=== PATIENT | male | born 1925 | race Caucasian/White ===

== ENCOUNTER 2016-10-21 10:06 | Emergency (ER) | payer MEDICARE ==
--- NOTE | 2016-10-21 12:09 | ED ---
Extremity Problem HPI - General Chief complaint: Extremity Problem,Nontraumatic Stated complaint: left leg pain Time Seen by Provider: 10/21/16 11:10 Source: patient Mode of arrival: ambulatory Limitations: no limitations - History of Present Illness Initial comments: Patient's 89-year-old male with history of diabetes and hypertension presenting with left calf pain. Patient states pain started Friday while he was getting up from sitting at his desk. Patient states pain and swelling has increased since Friday. Patient without history of DVT/PE. Denies history of travel/trauma/surgery. Denies diagnosis of cancer. Patient also complains of multiple episodes of lightheadedness where he catches himself before falling. Patient states lightheadedness happens in the morning and only last about 30 minutes. He has not fallen or hit his head. Patient does not take any blood thinners. - Related Data Home Medications Medication Instructions Recorded Confirmed Aspirin EC [Ecotrin Low Dose] 81 mg PO QAM 10/21/16 10/21/16 Gabapentin 800 mg PO HS 10/21/16 10/21/16 Glucosamine-Chondr 500-400Mg 1 tab PO QAM 10/21/16 10/21/16 Ibuprofen/Diphenhydramine HCl 2 cap PO HS 10/21/16 10/21/16 [Advil Pm Liqui-Gels] Metoprolol Succinate (ER) [Toprol 50 mg PO HS 10/21/16 10/21/16 Xl] Multivit-Min/FA/Lycopen/Lutein 1 tab PO QAM 10/21/16 10/21/16 [Centrum Silver Men Tablet] Omeprazole [PriLOSEC] 20 mg PO HS 10/21/16 10/21/16 Tamsulosin [Flomax] 0.8 mg PO HS 10/21/16 10/21/16 Vit C/E/Zn/Coppr/Lutein/Zeaxan 1 cap PO BID 10/21/16 10/21/16 [Preservision Areds 2 Softgel] amLODIPine [Norvasc] 10 mg PO HS 10/21/16 10/21/16 traMADol HCl [Ultram] 50 mg PO Q6H PRN 10/21/16 10/21/16 Allergies Allergy/AdvReac Type Severity Reaction Status Date / Time No Known Allergies Allergy Verified 10/21/16 11:16 Review of Systems ROS Statement: Those systems with pertinent positive or pertinent negative responses have been documented in the HPI. Constitutional: No fever and no chills. HENT: No congestion, no rhinorrhea and no sore throat. Eyes: No discharge and no redness. Respiratory: No cough and no shortness of breath. Cardiovascular: No chest pain and no palpitations. Gastrointestinal: No nausea, no vomiting, no abdominal pain and no diarrhea. Genitourinary: No dysuria and no hematuria. Musculoskeletal: + Swelling and calf pain Skin: No pallor and no rash. Neurological: +dizziness and No headaches. ROS Other: All systems not noted in ROS Statement are negative. Past Medical History Past Medical History: Diabetes Mellitus, Hypertension Additional Past Medical History / Comment(s): neuropathy History of Any Multi-Drug Resistant Organisms: None Reported Past Surgical History: Appendectomy, Cholecystectomy Past Psychological History: No Psychological Hx Reported Smoking Status: Never smoker Past Alcohol Use History: None Reported Past Drug Use History: None Reported General Exam - General Exam Comments Initial Comments: Constitutional: Patient appears well-developed and well-nourished. No distress. Head: Normocephalic and atraumatic. Eyes: Conjunctivae and EOM are normal. Right eye exhibits no discharge. Left eye exhibits no discharge. No scleral icterus. Neck: Normal range of motion. Neck supple. Cardiovascular: Normal rate and regular rhythm. No murmur heard. Pulmonary/Chest: Effort normal and breath sounds normal. No respiratory distress. No wheezes. Abdominal: Soft. No distension. There is no tenderness. There is no rebound and no guarding. Musculoskeletal: Patient with left leg swelling compared to right. Bruising noted to the left leg medial aspect and at the base of the ankle. Distal pulses in both extremities present by Doppler. Sensation intact but diminished due to neuropathy. Neurological: Patient alert and oriented to person, place, and time. Skin: Skin is warm and dry. Not diaphoretic. Nursing notes and vitals reviewed. Limitations: no limitations Course Vital Signs 10/21/16 10/21/16 10/21/16 10:49 13:25 15:03 Temperature 98.6 F 97.3 F L 97.3 F L Pulse Rate 78 68 72 Respiratory 20 18 20 Rate Blood Pressure 195/86 198/88 177/88 O2 Sat by Pulse 96 95 95 Oximetry - Reevaluation(s) Reevaluation #1: Patient updated on laboratory results. Left calf swollen and suspicious for DVT however duplex negative. Patient claimed lightheadedness therefore CT was ordered. Reevaluation #2: 10/21/16 15:20 Patient updated on negative results. Disclosed abnormal CT with patient about possible adrenal adenomas. Patient found to be hypertensive. No need for hydralazine given his blood pressure improved on nurse's repeat blood pressure. Patient states he did not miss any doses of his blood pressure medications and is not due until later today. Patient is not claiming any chest pain or headache. Medical Decision Making - Medical Decision Making Patient is a well-appearing 89-year-old male with diabetes and hypertension presenting with left calf pain and swelling concerning for DVT. Patient also admitted to episodes of lightheadedness for which he normally has in the morning. Duplex all shot was negative. CTA was done for concerns of traveling DVT. PE study was negative. Incidental adrena adenomas founded and disclosed to patient. Possibly related to episodes of lightheadedness with chaning BP while on blood pressure pressure medications. Patient was found to be hypertensive here with out symptoms. CBC, BMP, UA unremarkable. Prior to discharge, patient was resting comfortably in bed. Course of stay improved. Denies pain. Discussed physical exam and diagnostic tests with patient. Questions answered and patient is agreeable to discharge with close follow up with Primary Care Physician. Instructed to return to Emergency Department if symptoms worsen. Patient was noted to have asymptomatic hypertension. Discussed the importance of prompt follow-up with primary care doctor. - Lab Data Result diagrams: 10/21/16 11:59 10/21/16 11:59 Lab Results 10/21/16 10/21/16 10/21/16 Range/Units 11:59 11:59 11:59 WBC 10.9 H (3.8-10.6) k/uL RBC 5.44 (4.30-5.90) m/uL Hgb 15.7 (13.0-17.5) gm/dL Hct 46.6 (39.0-53.0) % MCV 85.5 (80.0-100.0) fL MCH 28.9 (25.0-35.0) pg MCHC 33.8 (31.0-37.0) g/dL RDW 13.2 (11.5-15.5) % Plt Count 229 (150-450) k/uL Neutrophils % 75 % Lymphocytes % 14 % Monocytes % 5 % Eosinophils % 3 % Basophils % 0 % Neutrophils # 8.2 H (1.3-7.7) k/uL Lymphocytes # 1.5 (1.0-4.8) k/uL Monocytes # 0.6 (0-1.0) k/uL Eosinophils # 0.3 (0-0.7) k/uL Basophils # 0.1 (0-0.2) k/uL PT (9.0-12.0) sec INR (<1.1) APTT (22.0-30.0) sec Sodium 142 (137-145) mmol/L Potassium 5.2 H (3.5-5.1) mmol/L Chloride 103 (98-107) mmol/L Carbon Dioxide 28 (22-30) mmol/L Anion Gap 11 mmol/L BUN 21 H (9-20) mg/dL Creatinine 1.07 (0.66-1.25) mg/dL Est GFR (MDRD) Af Amer >60 (>60 ml/min/1.73 sqM) Est GFR (MDRD) Non-Af >60 (>60 ml/min/1.73 sqM) Glucose 105 H (74-99) mg/dL Calcium 9.7 (8.4-10.2) mg/dL Magnesium 2.1 (1.6-2.3) mg/dL Urine Color Urine Appearance (Clear) Urine pH (5.0-8.0) Ur Specific [place] (1.001-1.035) Urine Protein (Negative) Urine Glucose (UA) (Negative) Urine Ketones (Negative) Urine Blood (Negative) Urine Nitrite (Negative) Urine Bilirubin (Negative) Urine Urobilinogen (<2.0) mg/dL Ur Leukocyte Esterase (Negative) 10/21/16 10/21/16 Range/Units 11:59 13:40 WBC (3.8-10.6) k/uL RBC (4.30-5.90) m/uL Hgb (13.0-17.5) gm/dL Hct (39.0-53.0) % MCV (80.0-100.0) fL MCH (25.0-35.0) pg MCHC (31.0-37.0) g/dL RDW (11.5-15.5) % Plt Count (150-450) k/uL Neutrophils % % Lymphocytes % % Monocytes % % Eosinophils % % Basophils % % Neutrophils # (1.3-7.7) k/uL Lymphocytes # (1.0-4.8) k/uL Monocytes # (0-1.0) k/uL Eosinophils # (0-0.7) k/uL Basophils # (0-0.2) k/uL PT 10.1 (9.0-12.0) sec INR 1.0 (<1.1) APTT 24.5 (22.0-30.0) sec Sodium (137-145) mmol/L Potassium (3.5-5.1) mmol/L Chloride (98-107) mmol/L Carbon Dioxide (22-30) mmol/L Anion Gap mmol/L BUN (9-20) mg/dL Creatinine (0.66-1.25) mg/dL Est GFR (MDRD) Af Amer (>60 ml/min/1.73 sqM) Est GFR (MDRD) Non-Af (>60 ml/min/1.73 sqM) Glucose (74-99) mg/dL Calcium (8.4-10.2) mg/dL Magnesium (1.6-2.3) mg/dL Urine Color Yellow Urine Appearance Clear (Clear) Urine pH 5.5 (5.0-8.0) Ur Specific [place] 1.014 (1.001-1.035) Urine Protein Negative (Negative) Urine Glucose (UA) Negative (Negative) Urine Ketones Negative (Negative) Urine Blood Negative (Negative) Urine Nitrite Negative (Negative) Urine Bilirubin Negative (Negative) Urine Urobilinogen <2.0 (<2.0) mg/dL Ur Leukocyte Esterase Negative (Negative) Rate 67. NSR. No ST-T wave changes. WA internal normal . QRS interval normal. QTc duration normal. Disposition Clinical Impression: Adrenal adenoma, Lightheadedness, Hypertension, Pain of left calf Disposition: HOME SELF-CARE Condition: Good Instructions: Lightheadedness (ED), Leg Pain (ED), Edema (ED) Referrals: Pablo Reyes MD [Primary Care Provider] - 1-2 days
[2016-10-21 12:15] LABS: Basophils # (A) 0.1 k/uL (0-0.2); Basophils % (A) 0 %; CH 29.3; CHCM 34.4; Eosinophils # (A) 0.3 k/uL (0-0.7); Eosinophils % (A) 3 %; HCT 46.6 % (39.0-53.0); HDW 2.79; HGB 15.7 gm/dL (13.0-17.5); Luc # (Auto) 0.26; Luc % (Auto) 2; Lymphocytes # (A) 1.5 k/uL (1.0-4.8); Lymphocytes % (A) 14 %; MCH 28.9 pg (25.0-35.0); MCHC 33.8 g/dL (31.0-37.0); MCV 85.5 fL (80.0-100.0); Mean Platelet Volume 8.8; Monocytes # (A) 0.6 k/uL (0-1.0); Monocytes % (A) 5 %; Neutrophils # (A) 8.2 k/uL (1.3-7.7); Neutrophils % (A) 75 %; RBC 5.44 m/uL (4.30-5.90); RDW 13.2 % (11.5-15.5); WBC 10.9 k/uL (3.8-10.6); WBC (Perox) 11.04
[2016-10-21 12:22] LABS: Partial Thromboplastin Time 24.5 sec (22.0-30.0); Prothrombin Time 10.1 sec (9.0-12.0)
[2016-10-21 12:28] LABS: Anion Gap 11 mmol/L; Blood Urea Nitrogen 21 mg/dL (9-20); Calcium 9.7 mg/dL (8.4-10.2); Carbon Dioxide 28 mmol/L (22-30); Chloride 103 mmol/L (98-107); Glucose 105 mg/dL (74-99); Non-African American GFR(MDRD) >60 (>60 ml/min/1.73 sqM); Potassium 5.2 mmol/L (3.5-5.1); Sodium 142 mmol/L (137-145)
[2016-10-21 13:27] VITALS: TEMP 97.3
--- NOTE | 2016-10-21 13:32 | XR ---
EXAMINATION TYPE: XR chest 1V portable DATE OF EXAM: 10/21/2016 1:27 PM COMPARISON: None HISTORY: Pain TECHNIQUE: Single frontal view of the chest is obtained. FINDINGS: There is no focal air space opacity, pleural effusion, or pneumothorax seen. The cardiac silhouette size is within normal limits. The osseous structures are intact. Heart is prominent and underlying COPD suspected. Atherosclerotic change aorta. Arthropathy of the shoulders. IMPRESSION: No acute process.
--- NOTE | 2016-10-21 13:38 | US ---
EXAMINATION TYPE: US venous doppler duplex LE DATE OF EXAM: 10/21/2016 1:06 PM COMPARISON: Prior right lower extremity venous ultrasound March 02, 2012. CLINICAL HISTORY: Pain. SIDE PERFORMED: Bilateral VESSELS IMAGED: External Iliac Vein (EIV) Common Femoral Vein Deep Femoral Vein Greater Saphenous Vein * Femoral Vein Popliteal Vein Small Saphenous Vein * Proximal Calf Veins (* superficial vessels) TECHNOLOGIST IMPRESSION: Right Leg: Negative for DVT Left Leg: Negative for DVT Satisfactory color flow, phasicity, and compressibility is seen in the bilateral lower extremities at the above levels. IMPRESSION: No ultrasound evidence for acute DVT in either lower extremity.
[2016-10-21] MEDS ORDERED: RX INFO: IV CONTRAST WAS GIVEN 1 EACH MISC MISCELLANE PRN (13:46)
[2016-10-21 13:57] LABS: Appearance,Urine Clear (Clear); Bilirubin,Urine Negative (Negative); Glucose,Urine (UA) Negative (Negative); Ketones,Urine Negative (Negative); Leukocyte Esterase,Urine Negative (Negative); Nitrite,Urine Negative (Negative); PH, Urine 5.5 (5.0-8.0); Protein,Urine Negative (Negative); Specific Gravity,Urine 1.014 (1.001-1.035); UA Billing (MACRO vs. MICRO) CHEM; Urobilinogen,Urine <2.0 mg/dL (<2.0)
--- NOTE | 2016-10-21 15:06 | CT ---
EXAMINATION TYPE: CT angio chest DATE OF EXAM: 10/21/2016 2:50 PM COMPARISON: NONE HISTORY: left lower leg pain and swelling CT DLP: 347.1 mGycm Automated exposure control for dose reduction was used. CONTRAST: CTA scan of the thorax is performed with IV Contrast, patient injected with 70 mL of Omnipaque 350, p ulmonary embolism protocol. . FINDINGS: LUNGS: The lungs are grossly clear, there is no concerning parenchymal mass or nodule identified. T here is no pleural effusion or pneumothorax seen. The tracheobronchial tree is patent. Basilar bronc hiectasis noted. MEDIASTINUM: There is satisfactory enhancement of the pulmonary artery and its branches, there is no CT evidence for pulmonary embolism. There are no greater than 1 cm hilar or mediastinal lymph nodes. No pericardial effusion is seen. The heart is enlarged and there is coronary artery calcification. OTHER: Calcifications in the liver may be vascular. IMPRESSION: NO CT EVIDENCE OF PULMONARY EMBOLISM. NONSPECIFIC BILATERAL ADRENAL THICKENING AND NODULARITY. MOST LIKELY RELATED TO ADENOMA..
[2016-10-21 15:07] VITALS: PULSE 72; RESP 20
[2016-10-21] MEDS ORDERED: hydrALAZINE HCL 20 MG/ML 1 ML VIAL IVP STA (15:19)
[2016-10-21 15:26] VITALS: BP 177/88
== END 2016-10-21 15:36 | disposition home or self-care (01) ==
LOC: EC 10:06
DX: D35.00 Benign neoplasm of unspecified adrenal gland (principal); R42 Dizziness and giddiness; M79.662 Pain in left lower leg; I10 Essential (primary) hypertension; Z79.82 Long term (current) use of aspirin; Z79.1 Long term (current) use of non-steroidal anti-inflammatories (NSAID); Z79.899 Other long term (current) drug therapy
CPT/HCPCS: 99284 ×2; 36415; 93005; 80048; 83735; 85025; 85610; 85730; 81003; 71010; 93970; 71275; Q9967

== ENCOUNTER → 2016-11-20 | Outpatient (CLI) | payer MEDICARE ==
[2016-11-20 12:54] LABS: Blood Urea Nitrogen 29 mg/dL (9-20); Non-African American GFR(MDRD) 51 (>60 ml/min/1.73 sqM)
--- NOTE | 2016-11-20 14:05 | CT ---
EXAMINATION TYPE: CT abdomen wo/w con DATE OF EXAM: 11/20/2016 1:44 PM COMPARISON: NONE HISTORY: Patient poor historian. Patient does not have any complaints at time of study. Adrenal gla nd disorder. CT DLP: 1391.5 mGycm, Automated Exposure Control for Dose Reduction was Utilized. CONTRAST: CT scan of the abdomen is performed with oral and without and with IV Contrast, patient injected with 80 mL of Visipaque 320. Adrenal gland protocol. FINDINGS: LUNG BASES: Cardiomegaly is present. There is dense calcification at level of mitral valve or annulus . LIVER/GB: Cholecystectomy clips are present. There is additional surgical clip between liver and righ t hemidiaphragm on axial image 13. Linear central calcifications in the liver could reflect intrahepa tic biliary cholelithiasis versus hepatic arterial vascular branching calcifications. Central calcifi cation posterior to portal vein on axial image 25 could reflect calcified subcentimeter lymph nodes. PANCREAS: No significant abnormality is seen. SPLEEN: No significant abnormality is seen. ADRENALS: There is low dense nodular thickening to left adrenal gland, this measures 1.6 x 1.1 cm on axial image 22 involving the posterior limb. Hounsfield units average 16 on noncontrast study, enhanc ed to 74 and 1 minute imaging and washout to 21 on delayed imaging. Low dense diffuse thickening to r ight adrenal gland is also present with greater than 50% washout. Findings are consistent with benign hyperplasia and/or lipid rich benign adenomas bilaterally. KIDNEYS: No significant abnormality is seen. BOWEL: Diverticula are seen throughout the colon most pronounced in visualized portion of the sigmoid colon in the lower abdomen/upper pelvis. LYMPH NODES: No greater than 1cm abdominal lymph nodes are appreciated. OSSEOUS STRUCTURES: There is levoconvex scoliosis centered at L3 level. There is moderate to advanced disc space narrowing with vacuum disc phenomenon at L2-L3 through L4-L5 levels. There is sclerosis w ith subchondral cystic change most prominent right L3-L4 level. Multilevel spurring centered near mid lumbar spine is present. There is facet arthropathy lower lumbar levels. OTHER: There is moderate calcified atherosclerotic change of the abdominal aorta extending into pelvi c branch vessels with slightly more severe plaque seen at origin of right external iliac artery. IMPRESSION: 1. Bilateral adrenal lesions with diffuse and nodular thickening are consistent with benign hyperplas ia and/or lipid rich small adenomas on adrenal protocol workup.
== END | disposition home or self-care (01) ==
LOC: RADCTMAIN 12:10
PROVIDERS: ATTEND Internal Medicine Geriatric Medicine
DX: E27.8 Other specified disorders of adrenal gland (principal)
CPT/HCPCS: 82565; 84520; 74170; 36415; Q9967

== ENCOUNTER 2017-08-01 13:11 | Emergency (ER) | payer MEDICARE ==
[2017-08-01 13:20] VITALS: RESP 18
--- NOTE | 2017-08-01 13:49 | ED ---
General Adult HPI - General Chief complaint: Upper Respiratory Infection Stated complaint: Cough Time Seen by Provider: 08/01/17 13:42 Source: patient, RN notes reviewed Mode of arrival: ambulatory Limitations: no limitations - History of Present Illness Initial comments: Patient is an 89-year-old male who presents emergency room today with a chief complaint of cough congestion times one week. He denies any sputum production. Does not that he had a sore throat and loss of voice or the week which has improved. He states he still having the cough. He states that at times he's had some chills. He denies any recorded temperatures. He denies any other sick contacts at home. States he was concerned that the cough does not seem to be improving so he came here to the emergency room to have it evaluated. Patient denies any recent fever, shortness of breath, chest pain, back pain, abdominal pain, nausea or vomiting, numbness or tingling, dysuria or hematuria, constipation or diarrhea, headaches or visual changes, or any other complaints. - Related Data Home Medications Medication Instructions Recorded Confirmed Aspirin EC [Ecotrin Low Dose] 81 mg PO QAM 10/21/16 08/01/17 Gabapentin 800 mg PO HS 10/21/16 08/01/17 Glucosamine-Chondr 500-400Mg 1 tab PO QAM 10/21/16 08/01/17 Ibuprofen/Diphenhydramine HCl 2 cap PO HS 10/21/16 08/01/17 [Advil Pm Liqui-Gels] Metoprolol Succinate (ER) [Toprol 50 mg PO HS 10/21/16 08/01/17 Xl] Multivit-Min/FA/Lycopen/Lutein 1 tab PO QAM 10/21/16 08/01/17 [Centrum Silver Men Tablet] Omeprazole [PriLOSEC] 20 mg PO HS 10/21/16 08/01/17 Tamsulosin [Flomax] 0.8 mg PO HS 10/21/16 08/01/17 amLODIPine [Norvasc] 10 mg PO HS 10/21/16 08/01/17 traMADol HCl [Ultram] 50 mg PO Q6H PRN 10/21/16 08/01/17 Previous Rx's Medication Instructions Recorded Azithromycin [Zithromax Z-pack] 0 mg PO DIRECTED #6 tab 12/29/17 Allergies Allergy/AdvReac Type Severity Reaction Status Date / Time Penicillins Allergy Unknown Verified 08/01/17 13:42 Review of Systems ROS Statement: Those systems with pertinent positive or pertinent negative responses have been documented in the HPI. ROS Other: All systems not noted in ROS Statement are negative. Past Medical History Past Medical History: Diabetes Mellitus, Hypertension Additional Past Medical History / Comment(s): neuropathy History of Any Multi-Drug Resistant Organisms: None Reported Past Surgical History: Appendectomy, Cholecystectomy Past Psychological History: No Psychological Hx Reported Smoking Status: Never smoker Past Alcohol Use History: None Reported Past Drug Use History: None Reported General Exam - General Exam Comments Initial Comments: General: The patient is awake and alert, in no distress, and does not appear acutely ill. Eye: Pupils are equal, round and reactive to light, extra-ocular movements are intact. No nystagmus. There is normal conjunctiva bilaterally. No signs of icterus. Ears, nose, mouth and throat: There are moist mucous membranes and no oral lesions. Neck: The neck is supple, there is no tenderness or JVD. Cardiovascular: There is a regular rate and rhythm. No murmur, rub or gallop is appreciated. Respiratory: Rhonchi on the right. respirations are non-labored, breath sounds are equal. No wheezes, stridor, rales. Musculoskeletal: Normal ROM, no tenderness. Strength 5/5. Sensation intact. Pulses equal bilaterally 2+. Neurological: A&O x 3. CN II-XII intact, There are no obvious motor or sensory deficits. Coordination appears grossly intact. Speech is normal. Skin: Skin is warm and dry and no rashes or lesions are noted. Psychiatric: Cooperative, appropriate mood & affect, normal judgment. Limitations: no limitations Course Vital Signs 08/01/17 13:18 Temperature 97.9 F Pulse Rate 87 Respiratory 18 Rate Blood Pressure 134/63 O2 Sat by Pulse 98 Oximetry Medical Decision Making - Medical Decision Making Case discussed in detail with attending physician Dr. Abbasi. This reexamined at this time shows no signs of distress. Chest x-rays negative for any sign of pneumonia. Influenza negative. Patient does have cough congestion and some scattered rhonchi will be covered with antibiotic and advised to follow-up with family doctor over the next 2 days. Advised return here to the emergency room symptoms increase or worsen or fail concerns. - Lab Data Lab Results 08/01/17 Range/Units 14:00 Influenza Type A RNA Not Detected (Not Detectd) Influenza Type B (PCR) Not Detected (Not Detectd) Disposition Clinical Impression: Acute bronchitis Disposition: HOME SELF-CARE Condition: Good Instructions: Acute Bronchitis (ED) Additional Instructions: Please use medication as discussed. Please follow-up with family doctor in the next 2 days of symptoms have not improved. Please return to emergency room if the symptoms increase or worsen or for any other concerns. Prescriptions: Azithromycin [Zithromax Z-pack] 0 mg PO DIRECTED #6 tab Referrals: Pablo Reyes MD [Primary Care Provider] - 1-2 days Time of Disposition: 14:50
--- NOTE | 2017-08-01 14:21 | XR ---
EXAMINATION TYPE: XR chest 2V DATE OF EXAM: 08/01/2017 COMPARISON: Chest x-ray CTA chest October 21, 2016 HISTORY: Cough for one week. TECHNIQUE: Frontal and lateral views of the chest are obtained. FINDINGS: There is chronic parenchymal change without suspicious air space opacity, pleural effusion , or pneumothorax seen. The cardiac silhouette size is upper limits of normal with atherosclerotic a chaim. The osseous structures are demineralized. IMPRESSION: Chronic parenchymal change without suspicious acute pulmonary process.
[2017-08-01 15:04] VITALS: BP 161/75; PULSE 71; TEMP 97.4
== END 2017-08-01 15:04 | disposition home or self-care (01) ==
LOC: EC 13:11
DX: J20.9 Acute bronchitis, unspecified (principal); I10 Essential (primary) hypertension; G62.9 Polyneuropathy, unspecified; Z79.1 Long term (current) use of non-steroidal anti-inflammatories (NSAID); Z79.82 Long term (current) use of aspirin; Z79.899 Other long term (current) drug therapy; Z88.0 Allergy status to penicillin
CPT/HCPCS: 71020; 87502; 99283